=== PATIENT | male | born 1980 | race Caucasian/White ===

== ENCOUNTER 2024-06-16 14:29 | Emergency (ER) | payer SELFPAY ==
[~2024-06-16] VITALS: Ht 180.3 cm; Wt 106.8 kg
[2024-06-16] MEDS ORDERED: MUPI22OI30 TOP (15:44)
[2024-06-16] MEDS ORDERED: CEPH-585 PO (15:44)
[2024-06-16] MEDS ORDERED: SULF1TAB49 PO (15:44)
[2024-06-16] MEDS: TETanus/Pertussis (Acell)/Diphther VAC/PF (Tdap-Adult) 0.5ml syringe IMVAC ONE (16:00)
[2024-06-16 16:04] VITALS: BP 128/80; PULSE 84; RESP 16; TEMP 97.8; O2SAT 99
== END 2024-06-16 16:06 | disposition home or self-care (01) ==
LOC: ER 14:29
DX: L03.116 Cellulitis of left lower limb (principal); Z88.0 Allergy status to penicillin; L75.0 Bromhidrosis
CPT/HCPCS: 90471; 90715; 99283